=== PATIENT | female | born 1990 | race Caucasian/White ===

== ENCOUNTER 2020-06-15 11:14 | Emergency (ER) | payer OTHER ==
[~2020-06-15] VITALS: Ht 157.5 cm; Wt 77.1 kg
[2020-06-15] MEDS ORDERED: SINGULAIR10 MG PO (11:45)
[2020-06-15] MEDS ORDERED: ULTRAM50 MG PO (16:43)
[2020-06-15] MEDS ORDERED: LO LOESTRIN FE1 EACH PO (16:43)
[2020-06-15] MEDS ORDERED: KETO10TA2 PO (16:43)
== END 2020-06-15 16:54 ==
LOC: ER 11:14
DX: R10.2 Pelvic and perineal pain (principal); N83.299 Other ovarian cyst, unspecified side; N39.0 Urinary tract infection, site not specified

== ENCOUNTER 2020-08-21 05:43 | Emergency (ER) | payer OTHER ==
[~2020-08-21] VITALS: Ht 157.5 cm; Wt 73.5 kg
[~2020-08-21 05:43] MED LIST: KETO10TA2 PO; LO LOESTRIN FE1 EACH PO; SINGULAIR10 MG PO; ULTRAM50 MG PO
[2020-08-21] MEDS ORDERED: INTESTINEX680 M1 PO (13:24)
[2020-08-21] MEDS ORDERED: ZITHROMAX500 MG PO (13:24)
[2020-08-21] MEDS ORDERED: KETO10TA2 PO (13:24)
== END 2020-08-21 13:33 | disposition home or self-care (01) ==
LOC: ER 05:43
DX: J31.2 Chronic pharyngitis (principal); Z11.52 Encounter for screening for COVID-19

== ENCOUNTER 2020-08-30 16:15 | Emergency (ER) | payer OTHER ==
[~2020-08-30] VITALS: Ht 157.5 cm; Wt 73.9 kg
[~2020-08-30 16:15] MED LIST changes: +INTESTINEX680 M1 PO; +ZITHROMAX500 MG PO
== END 2020-08-30 19:59 | disposition home or self-care (01) ==
LOC: ER 16:15
DX: N94.4 Primary dysmenorrhea (principal)

== ENCOUNTER 2021-01-10 00:06 | Emergency (ER) | payer OTHER ==
[~2021-01-10] VITALS: Ht 157.5 cm; Wt 73.5 kg
[2021-01-10] MEDS ORDERED: AMOX-CLAV 875-1 EACH PO (00:40)
[2021-01-10] MEDS ORDERED: TUSNEL LIQUID178 ML PO (00:40)
== END 2021-01-10 00:55 | disposition home or self-care (01) ==
LOC: ER 00:06
DX: J03.90 Acute tonsillitis, unspecified (principal)

== ENCOUNTER 2021-03-03 20:29 | Emergency (ER) | payer OTHER ==
[~2021-03-03] VITALS: Ht 157.5 cm; Wt 58.1 kg
[~2021-03-03 20:29] MED LIST changes: +AMOX-CLAV 875-1 EACH PO; +TUSNEL LIQUID178 ML PO
== END 2021-03-03 22:23 | disposition home or self-care (01) ==
LOC: ER 20:29
DX: R51.9 Headache, unspecified (principal)

== ENCOUNTER 2021-04-24 01:03 | Emergency (ER) | payer OTHER ==
[~2021-04-24] VITALS: Ht 157.5 cm; Wt 70.3 kg
== END 2021-04-24 10:24 | disposition home or self-care (01) ==
LOC: ER 01:03
DX: R10.2 Pelvic and perineal pain (principal); N83.209 Unspecified ovarian cyst, unspecified side; N73.0 Acute parametritis and pelvic cellulitis; D25.9 Leiomyoma of uterus, unspecified

== ENCOUNTER → 2021-04-25 | Emergency (ER) | payer OTHER ==
[~2021-04-25] VITALS: Ht 157.5 cm; Wt 70.3 kg
== END | disposition left against medical advice (07) ==
LOC: ER 01:13
DX: Z53.21 Procedure and treatment not carried out due to patient leaving prior to being seen by health care provider (principal)

== ENCOUNTER 2021-05-16 16:39 | Emergency (ER) | payer OTHER ==
[~2021-05-16] VITALS: Ht 157.5 cm; Wt 63.5 kg
== END 2021-05-16 22:57 | disposition home or self-care (01) ==
LOC: ER 16:39
DX: R10.84 Generalized abdominal pain (principal); D25.9 Leiomyoma of uterus, unspecified; N83.209 Unspecified ovarian cyst, unspecified side